=== PATIENT | male | born 1975 | race African-American/Black ===

== ENCOUNTER 2017-07-22 23:15 | Emergency (ER) | payer OTHER ==
[~2017-07-22] VITALS: Ht 185.4 cm; Wt 170.7 kg
[2017-07-22 23:18] VITALS: BP 155/64
[2017-07-22 23:22] LABS: GLUCOSE,POINT OF CARE 187 MG/DL (70-110)
[2017-07-22] MEDS ORDERED: CeFAZolin 1 GM/DEXTROSE 50 ML IV ONE (23:30)
[2017-07-22] MEDS ORDERED: PERTUSS(ACELL),DIPH,TET VAC/PF 0.5 ML VIAL IM ONE (23:30)
[2017-07-22] MEDS ORDERED: CLON.2 PO (23:31)
[2017-07-22] MEDS ORDERED: SPIR25 PO (23:31)
== END 2017-07-23 00:37 | disposition short-term general hospital (02) ==
LOC: EMS 23:16
DX: S30.811A Abrasion of abdominal wall, initial encounter (principal); S50.312A Abrasion of left elbow, initial encounter; S00.212A Abrasion of left eyelid and periocular area, initial encounter; S80.812A Abrasion, left lower leg, initial encounter; S80.811A Abrasion, right lower leg, initial encounter; S00.512A Abrasion of oral cavity, initial encounter; I10 Essential (primary) hypertension; E66.9 Obesity, unspecified; Z68.42 Body mass index [BMI] 45.0-49.9, adult; V40.9XXA Unspecified car occupant injured in collision with pedestrian or animal in traffic accident, initial encounter; Y93.89 Activity, other specified; Y92.488 Other paved roadways as the place of occurrence of the external cause; Y99.8 Other external cause status
CPT/HCPCS: 71010; 82962; 90471; 90715; 96365; 99285; J0690

== ENCOUNTER → 2017-11-01 | Outpatient (CLI) | payer OTHER ==
[~2017-11-01] MED LIST: CLON.2 PO; SPIR25 PO
== END | disposition home or self-care (01) ==
LOC: RADPV 09:36
PROVIDERS: ATTEND Hospitalist
DX: N17.9 Acute kidney failure, unspecified (principal)
CPT/HCPCS: 76770